=== PATIENT | female | born 1975 | race African-American/Black ===

== ENCOUNTER 2018-11-02 21:25 | Emergency (ER) | payer OTHER ==
[~2018-11-02] VITALS: Ht 157.5 cm; Wt 60.0 kg
[2018-11-03] MEDS ORDERED: KETOROLAC 15MG/ML VIAL IV ONE
[2018-11-03] MEDS ORDERED: METOCLOPRAMIDE HCL 10MG/2ML VIAL IV ONE
[2018-11-03] MEDS ORDERED: SODIUM CHLORIDE 0.9% 1,000 ML IV ONE
[2018-11-03 01:09] VITALS: BP 110/61
== END 2018-11-03 01:50 | disposition home or self-care (01) ==
LOC: ER 21:25
DX: G43.909 Migraine, unspecified, not intractable, without status migrainosus (principal)
CPT/HCPCS: 81025; 96374; 96375; 99283; J1885; J2765; J7030

== ENCOUNTER 2022-12-17 12:22 | Emergency (ER) | payer OTHER ==
[~2022-12-17] VITALS: Ht 157.5 cm; Wt 67.6 kg
[2022-12-17 12:26] VITALS: O2SAT 100
[2022-12-17] MEDS ORDERED: LIDOCAINE 5% PATCH TOP SCH (12:45)
[2022-12-17] MEDS ORDERED: KETOROLAC 30MG/ML VIAL IM ONE (12:45)
[2022-12-17] MEDS ORDERED: CYCLOBENZAPRINE 10MG TABLET PO ONE (12:45)
[2022-12-17] MEDS ORDERED: NAPR-681 MT (13:38)
[2022-12-17] MEDS ORDERED: LIDO700A15 TP (13:40)
[2022-12-17 14:08] VITALS: BP 126/77; PULSE 76; RESP 18; TEMP 95.7
== END 2022-12-17 14:09 | disposition home or self-care (01) ==
LOC: ER 12:22
DX: S20.211A Contusion of right front wall of thorax, initial encounter (principal); W22.8XXA Striking against or struck by other objects, initial encounter; Y93.89 Activity, other specified; Y92.89 Other specified places as the place of occurrence of the external cause; Y99.8 Other external cause status; M54.50 Low back pain, unspecified; E78.00 Pure hypercholesterolemia, unspecified; Z98.890 Other specified postprocedural states
CPT/HCPCS: 71101; 81025; 96372; 99283; J1885

== ENCOUNTER 2023-11-09 13:39 | Emergency (ER) | payer MEDICAID, OTHER ==
[~2023-11-09] VITALS: Ht 162.6 cm; Wt 68.0 kg
[~2023-11-09 13:39] MED LIST: LIDO700A15 TP; NAPR-681 MT
[2023-11-09 13:56] VITALS: O2SAT 99
[2023-11-09] MEDS ORDERED: ACETAMINOPHEN 325MG TABLET PO ONE (17:45)
[2023-11-09] MEDS ORDERED: OXYCODONE HCL/ACETAMINOPHEN 5/325MG TABLET PO ONE (18:45)
[2023-11-09 20:00] LABS: BASOPHILS % 1.1 % (0.0-2.0); EOSINOPHILS % 3.2 % (0.0-5.0); HEMATOCRIT. 43.5 % (36.0-48.0); HEMOGLOBIN. 14.6 g/dL (12.0-16.0); LYMPHOCYTES % 64.5 % (20.0-50.0); MEAN CORPUSCULAR HEMOGLOBIN 30.6 pg (28.0-32.0); MEAN CORPUSCULAR HGB CONC 33.5 g/dL (31.0-37.0); MEAN CORPUSCULAR VOLUME 91.6 fL (81.0-99.0); MEAN PLATELET VOLUME 8.6 fl (7.4-10.4); MONOCYTES % 11.1 % (2.0-8.0); NEUTROPHILS % 20.1 % (40.0-76.0); PLATELET 237 x1000/uL (130-400); RED BLOOD CELL COUNT 4.75 mill/uL (4.2-5.4); RED CELL DISTRIBUTION WIDTH 12.9 % (11.6-14.6); WHITE BLOOD COUNT 5.3 x1000/uL (4.5-11.0)
[2023-11-09 20:11] LABS: ALANINE AMINOTRANSFERASE 18 IU/L (10-49); ASPARTATE AMINOTRANSFERASE 33 IU/L (<34); BILIRUBIN TOTAL 0.5 mg/dL (0.1-1.0); CALCIUM 9.6 mg/dL (8.7-10.4); CARBON DIOXIDE 27 mEq/L (21-32); CHLORIDE 106 mEq/L (98-107); CREATININE 0.7 mg/dL (0.6-1.0); GLUCOSE 94 mg/dL (70-105); POTASSIUM 4.1 mEq/L (3.5-5.1); PROTEIN TOTAL 7.4 g/dL (6.0-8.3); SODIUM 140 mEq/L (136-145); UREA NITROGEN BLOOD 8 mg/dL (9-23)
[2023-11-09 20:13] LABS: TROPONIN I HIGH SENSITIVITY < 4 ng/L (3.0-34)
[2023-11-09] MEDS ORDERED: NAPR-681 MT (20:29)
[2023-11-09] MEDS ORDERED: LIDO700A15 TP (20:29)
[2023-11-09] MEDS ORDERED: PROC-11 MT (20:31)
[2023-11-09] MEDS ORDERED: HYDR-4001 MT (20:31)
[2023-11-09] MEDS: ACETAMINOPHEN 325MG TABLET PO NR (20:40)
[2023-11-09] MEDS: OXYCODONE HCL/ACETAMINOPHEN 5/325MG TABLET PO NR (20:41)
[2023-11-09] MEDS: PROCHLORPERAZINE 10MG/2ML VIAL IM ONE (20:42)
[2023-11-09 22:08] VITALS: BP 129/80; PULSE 74; RESP 18; TEMP 98.2
== END 2023-11-09 22:08 | disposition home or self-care (01) ==
LOC: ER 13:43
DX: G43.909 Migraine, unspecified, not intractable, without status migrainosus (principal); M46.92 Unspecified inflammatory spondylopathy, cervical region; F12.10 Cannabis abuse, uncomplicated; E78.00 Pure hypercholesterolemia, unspecified; Z86.59 Personal history of other mental and behavioral disorders; Z98.890 Other specified postprocedural states
CPT/HCPCS: 99285; 70450; 71045; 80053; 83880; 85025; 84484; 36415; 96372; J0780

== ENCOUNTER 2024-10-31 11:57 | Emergency (ER) | payer MEDICAID, OTHER ==
[~2024-10-31] VITALS: Ht 160 cm; Wt 72.0 kg
[~2024-10-31 11:57] MED LIST changes: +HYDR-4001 MT; +PROC-11 MT
[2024-10-31 12:04] VITALS: TEMP 36.9; O2SAT 100
[2024-10-31 12:06] VITALS: O2SAT 100
[2024-10-31] MEDS: ONDANSETRON 4MG ODT PO STA (15:04)
[2024-10-31] MEDS: KETOROLAC 30MG/ML VIAL IM STA (15:04)
[2024-10-31 15:50] LABS: CLARITY URINE CLOUDY (CLEAR); COLOR URINE YELLOW (YELLOW); GLUCOSE URINE NEGATIVE (NEGATIVE); KETONES URINE NEGATIVE (NEGATIVE); LEUKOCYTE ESTERASE URINE NEGATIVE (NEGATIVE); NITRITE URINE NEGATIVE (NEGATIVE); OCCULT BLOOD URINE NEGATIVE (NEGATIVE); PH URINE 8.5 (4.5-8.0); PROTEIN URINE NEGATIVE (NEGATIVE); SPECIFIC GRAVITY URINE 1.017 (1.005-1.030)
[2024-10-31 15:51] LABS: BASOPHILS % 1.2 % (0.0-2.0); EOSINOPHILS % 1.2 % (0.0-5.0); HEMATOCRIT. 38.3 % (36.0-48.0); HEMOGLOBIN. 12.5 g/dL (12.0-16.0); LYMPHOCYTES % 57.8 % (20.0-50.0); MEAN CORPUSCULAR HEMOGLOBIN 30.6 pg (28.0-32.0); MEAN CORPUSCULAR HGB CONC 32.6 g/dL (31.0-37.0); MEAN CORPUSCULAR VOLUME 93.6 fL (81.0-99.0); MONOCYTES % 10.5 % (2.0-8.0); NEUTROPHILS % 29.3 % (40.0-76.0); PLATELET 219 x1000/uL (130-400); RED BLOOD CELL COUNT 4.09 mill/uL (4.2-5.4); RED CELL DISTRIBUTION WIDTH 13.6 % (11.6-14.6); WHITE BLOOD COUNT 5.7 x1000/uL (4.5-11.0)
[2024-10-31 15:57] LABS: PROTHROMBIN TIME 10.9 sec (9.6-11.0)
[2024-10-31 15:58] LABS: CHLORIDE 107 mEq/L (98-107); POTASSIUM 4.8 mEq/L (3.5-5.1); SODIUM 140 mEq/L (136-145)
[2024-10-31 15:59] LABS: CALCIUM 9.6 mg/dL (8.7-10.4); CARBON DIOXIDE 27 mEq/L (21-32)
[2024-10-31 16:04] LABS: CREATININE 0.7 mg/dL (0.6-1.0); GLUCOSE 96 mg/dL (70-105); UREA NITROGEN BLOOD 9 mg/dL (9-23)
[2024-10-31 16:08] LABS: TROPONIN I HIGH SENSITIVITY < 4 ng/L (3.0-34)
[2024-10-31] MEDS ORDERED: KETO10TA2 MT (16:32)
[2024-10-31] MEDS ORDERED: HYDR-4001 MT (16:45)
[2024-10-31 17:03] LABS: BACTERIA URINE 3+; RBC URINE 0-2 /hpf (0-2); SQUAMOUS EPITHELIAL CELL URINE 1+ /lpf (RARE/1+); WBC URINE 0-2 /hpf (0-2)
[2024-10-31 17:04] LABS: AMORPHOUS SEDIMENT URINE 1+ /lpf
[2024-10-31 17:08] VITALS: BP 127/72; PULSE 89; RESP 18
[2024-10-31] MEDS: HYDROCODONE/ACETAMINOPHEN 5/325MG TABLET PO ONE (17:08)
== END 2024-10-31 17:20 | disposition home or self-care (01) ==
LOC: ER 11:57
DX: M54.6 Pain in thoracic spine (principal); M25.512 Pain in left shoulder; M79.622 Pain in left upper arm; E78.00 Pure hypercholesterolemia, unspecified; M19.90 Unspecified osteoarthritis, unspecified site; F10.90 Alcohol use, unspecified, uncomplicated; F12.90 Cannabis use, unspecified, uncomplicated; Z63.4 Disappearance and death of family member; Z79.1 Long term (current) use of non-steroidal anti-inflammatories (NSAID); Y90.9 Presence of alcohol in blood, level not specified
CPT/HCPCS: 99285; 71045; 80048; 81003; 83880; 83690; 85025; 85610; 84484; 36415; 93005; 96372; J1885; Q0162